=== PATIENT | male | born 1945 | race Caucasian/White ===

== ENCOUNTER → 2018-11-29 | Outpatient (CLI) | payer MEDICARE | END | disposition home or self-care (01) | LOC: CFH 08:31 | PROVIDERS: ATTEND Podiatrist | DX: R60.0 Localized edema (principal) ==

== ENCOUNTER 2020-05-31 13:03 | Outpatient (CLI) | payer MEDICARE ==
[2020-05-31] MEDS ORDERED: MIDAZOLAM 1 MG/ML, 5ML ONE (14:00)
[2020-05-31] MEDS ORDERED: FENTANYL PF 100 MCG/2ML ONE (14:00)
[2020-06-04] MEDS ORDERED: TORS20TA2 PO (09:55)
[2020-06-04] MEDS ORDERED: METF500T17 PO (09:55)
[2020-06-04] MEDS ORDERED: INSU100V13 SQ (10:12)
[2020-06-04] MEDS ORDERED: LOSA25TA25 PO (10:12)
[2020-06-04] MEDS ORDERED: GABA300C PO (10:12)
[2020-06-04] MEDS ORDERED: LORA10TA75 PO (10:12)
[2020-06-04] MEDS ORDERED: PIOG15TA22 PO (10:12)
[2020-06-04] MEDS ORDERED: TAMS-11 PO (10:12)
[2020-06-04] MEDS ORDERED: HYDR-3246 PO (10:30)
[2020-06-04] MEDS ORDERED: OMEP20TA62 PO (10:30)
== END 2020-05-31 23:59 | disposition home or self-care (01) ==
LOC: RAD 13:03
PROVIDERS: ATTEND Nurse Practitioner
DX: M47.26 Other spondylosis with radiculopathy, lumbar region (principal); M48.061 Spinal stenosis, lumbar region without neurogenic claudication; M25.78 Osteophyte, vertebrae; I10 Essential (primary) hypertension; E11.9 Type 2 diabetes mellitus without complications; Z88.2 Allergy status to sulfonamides
CPT/HCPCS: 72148; 99156; 99157; J2250; J3010

== ENCOUNTER → 2021-01-03 | Outpatient (CLI) | payer MEDICARE ==
[~2021-01-03] MED LIST: GABA300C PO; HYDR-3248 PO; INSU100V13 SQ; LORA10TA75 PO; LOSA25TA25 PO; METF500T17 PO; OMEP20TA62 PO; PIOG15TA22 PO; TAMS-11 PO; TORS20TA2 PO
== END | disposition home or self-care (01) ==
LOC: CFH 12:43
PROVIDERS: ATTEND Physician Assistant
DX: M51.37 Other intervertebral disc degeneration, lumbosacral region (principal); M48.07 Spinal stenosis, lumbosacral region; M41.86 Other forms of scoliosis, lumbar region; M25.78 Osteophyte, vertebrae
CPT/HCPCS: 72131